=== PATIENT | male | born 1960 | race Caucasian/White ===

== ENCOUNTER → 2016-09-24 | Outpatient (CLI) | payer BC ==
--- NOTE | ~2016-09-24 | US78 ---
[facility] of [facility] RADIOLOGY TEXT RESULTS PATIENT: PARKER FAYE LOCATION: CNIV : 56 UNIT #: [id number] AGE: [address]: Domenic Wiseman MD SEX: M ORDER DR: [id number] [facility]. [place], [place] [address] [id number] O MR#: [id number] Acc #: [id number] NAME: PARKER FAYE : 1960 SEX: M STUDY DATE/TIME: 09/24/2016 10:13 UNIT: CNIV ROOM: STUDY DESCRIPTION: US Kidney Duplex Complete Attending Physician: Domenic Wiseman M.D. Referring Physician: Domenic Wiseman M.D. Ordering Physician: Domenic Wiseman M.D. Primary Care Physician: Rachel Ramirez M.D. MEDICAL IMAGING REPORT This report is preliminary unless electronic signature is present EXAM Renal duplex. INDICATION Hypertension for 2 years. TECHNIQUE Mccoy-scale, color Doppler, and spectral Doppler waveform analysis was performed through the patient's kidneys. FINDINGS Both kidneys are normal in appearance. No solid or cystic renal masses are seen and there is no hydronephrosis. Peak systolic velocities within the main renal arteries are within normal limits bilaterally and overall I think the waveforms appear well preserved. Both renal veins appear to be patent. IMPRESSION No convincing evidence of renal artery stenosis. Dictated by... Valentina Gonzalez M.D. THIS IS AN ELECTRONICALLY VERIFIED REPORT Valentina Gonzalez M.D. at 09/26/2016 4:27 PM AFF/tmw TD: 09/26/2016 11:38 JOB #: [id number] MEDICAL IMAGING REPORT [facility] RADIOLOGY TEXT RESULTS PATIENT: PARKER FAYE LOCATION: CNIV : 56 UNIT #: [id number] AGE: [address]: Domenic Wiseman MD SEX: M ORDER DR: Page 1 of 1 COPY
--- NOTE | ~2016-09-24 | US77 ---
[facility] A Service of [facility] RADIOLOGY TEXT RESULTS PATIENT: PARKER FAYE LOCATION: CNIV : 56 UNIT #: [id number] AGE: [address]: Domenic Wiseman MD SEX: M ORDER DR: [id number] [facility] [address] [place], [place] [address] [id number] O MR#: [id number] Acc #: [id number] NAME: PARKER FAYE : 1960 SEX: M STUDY DATE/TIME: 09/24/2016 10:59 UNIT: CNIV ROOM: STUDY DESCRIPTION: US Kidney Bilateral Complete Attending Physician: Domenic Wiseman M.D. Referring Physician: Domenic Wiseman M.D. Ordering Physician: Domenic Wiseman M.D. Primary Care Physician: Rachel Ramirez M.D. MEDICAL IMAGING REPORT This report is preliminary unless electronic signature is present EXAM Renal ultrasound, 09/24/2016 HISTORY Acute renal insufficiency with abnormal renal function tests. Elevated creatinine of 1.6. Abnormally low GFR of 46 on 09/24/2016. Benign essential hypertension. FINDINGS The left kidney measured 12.2 cm while the right kidney measured 9.2 cm in longitudinal dimensions. There is no evidence of hydronephrosis or nephrolithiasis. No cystic or solid mass lesions were seen on either kidney. There is normal renal cortical echogenicity. Images of the bladder are normal. IMPRESSION 1. Negative renal ultrasound. 2. Images of the bladder are normal. Dictated by... Matt Tomlin M.D. THIS IS AN ELECTRONICALLY VERIFIED REPORT Matt Tomlin M.D. at 09/25/2016 8:07 AM Kendy TD: 09/24/2016 14:58 JOB #: [id number] MEDICAL IMAGING REPORT Page 1 of 1 COPY
== END | disposition home or self-care (01) ==
LOC: CNIV 08:29
DX: I12.9 Hypertensive chronic kidney disease with stage 1 through stage 4 chronic kidney disease, or unspecified chronic kidney disease (principal); N18.3 Chronic kidney disease, stage 3 (moderate)
CPT/HCPCS: 76770; 93975